=== PATIENT | female | born 1960 | race Caucasian/White ===

== ENCOUNTER 2017-06-03 13:23 | Emergency (ER) | payer OTHER ==
--- NOTE | 2017-06-03 13:49 | C.PDOC ---
History Of Present Illness 57 yr old female presents to the ER with complaints of right hip/groin pain for the past 4 days. Patient states she awoke with pain to the right hip, radiating to the right inner thigh/groin, worse when ranges hip. Denies trauma, pain with weight bearing, back pain, weakness or numbness. VIA TRANS R HIP/GROIN PAIN X 4 DAYS. AWOKE W PAIN R HIP RADIATION R INNER THIGH/GROIN. WORSE WHEN RANGES HIP. NO PAIN W WT BEAR. NO TRAUMA. Time Seen by Provider: 06/03/17 13:46 Chief Complaint (Nursing): Lower Extremity Problem/Injury History Per: Patient History/Exam Limitations: no limitations Onset/Duration Of Symptoms: Days (4) Current Symptoms Are (Timing): Still Present Past Medical History Reviewed: Historical Data, Nursing Documentation, Vital Signs Vital Signs: Last Vital Signs Temp 98.2 F 06/03/17 13:42 Pulse 68 06/03/17 13:42 Resp 16 06/03/17 13:42 BP 122/78 06/03/17 13:42 Pulse Ox 99 06/03/17 14:32 Family History: States: No Known Family Hx Review Of Systems Except As Marked, All Systems Reviewed And Found Negative. Musculoskeletal: Positive for: Other ((+) Right hip/groin pain ). Negative for : Back Pain Neurological: Negative for: Weakness, Numbness Physical Exam - Physical Exam Appears: Non-toxic, No Acute Distress Skin: Warm, Dry Head: Atraumatic, Normacephalic Extremity: Normal ROM (Full ROM of right hip, full external and internal rotation. ), No Swelling Neurological/Psych: Oriented x3, Normal Speech, Normal Motor ED Course And Treatment O2 Sat by Pulse Oximetry: 99 Pulse Ox Interpretation: Normal - Other Rad X-Ray - Right Hip w/ Pelvis X-Ray: Interpreted by Me (NEG) R HIP X-Ray: Interpreted by Me (NEG) Medical Decision Making Medical Decision Making: PLAN: * X-Ray - Right Hip w/ Pelvis * Motrin PO Disposition Counseled Patient/Family Regarding: Studies Performed, Diagnosis, Need For Followup, Rx Given - Disposition Referrals: [facility] [Outside] [facility] [Outside] Disposition: HOME/ ROUTINE Disposition Time: 14:44 Condition: GOOD Prescriptions: Ibuprofen [Motrin] 600 mg PO Q6 #30 tab Instructions: Hip Sprain (ED) Forms: Work Excuse Print Language: AMHARIC - Clinical Impression Clinical Impression: Hip pain - Scribe Statement The provider has reviewed the documentation as recorded by the Tomibe Mercedes Esteban Provider Attestation: All medical record entries made by the Tomibclay were at my direction and personally dictated by me. I have reviewed the chart and agree that the record accurately reflects my personal performance of the history, physical exam, medical decision making, and the department course for this patient. I have also personally directed, reviewed, and agree with the discharge instructions and disposition. Orthopedic Care Application Of:: Knee Immobilizer
[2017-06-03 15:01] VITALS: BP 122/75; PULSE 58; RESP 18; TEMP 98.8; O2SAT 98
--- NOTE | 2017-06-03 15:50 | RAD ---
PROCEDURE: Right Hip Radiographs. HISTORY: PAIN COMPARISON: None. FINDINGS: BONES: No fracture. Probable small bone island adjacent to inferior acetabulum. JOINTS: Narrowing of superior joint space bilaterally with mild marginal osteophyte at superior acetabulum, consistent with osteoarthritis. No articular erosion. SOFT TISSUES: Normal. OTHER FINDINGS: None. IMPRESSION: Mild bilateral superior osteoarthritis.
== END 2017-06-03 15:00 | disposition home or self-care (01) ==
LOC: C.ER 13:23
DX: M25.551 Pain in right hip (principal)

== ENCOUNTER 2018-09-22 09:14 | Emergency (ER) | payer OTHER ==
--- NOTE | 2018-09-22 10:23 | C.PDOC ---
History Of Present Illness 58 y/o female with a PMHx of arthritis in both knees, presents to the ED complaining of right knee pain and difficulty walking for the past week. Patient reports that 2 years ago she had similar pain in the left knee. She describes the pain as shocking, rated 8/10. Patient states the right leg feels weak, and the knee occasionally amber when walking. Otherwise she denies any fever, chills, known trauma, or changes in sensation. Time Seen by Provider: 09/22/18 09:30 Chief Complaint (Nursing): Lower Extremity Problem/Injury History Per: Patient History/Exam Limitations: no limitations Onset/Duration Of Symptoms: Days Current Symptoms Are (Timing): Still Present Severity: Moderate Pain Scale Rating Of: 8 Past Medical History Reviewed: Historical Data, Nursing Documentation, Vital Signs Vital Signs: Last Vital Signs Temp 98 F 09/22/18 09:20 Pulse 70 09/22/18 09:20 Resp 16 09/22/18 09:20 BP 159/83 H 09/22/18 09:20 Pulse Ox 100 09/22/18 09:20 - Medical History PMH: Anemia, Arthritis Other Surgeries: Tubal ligation Family History: States: No Known Family Hx - Social History Hx Alcohol Use: No Hx Substance Use: No - Immunization History Hx Tetanus Toxoid Vaccination: No Hx Influenza Vaccination: No Hx Pneumococcal Vaccination: No Review Of Systems Except As Marked, All Systems Reviewed And Found Negative. Constitutional: Negative for: Fever, Chills Musculoskeletal: Positive for: Leg Pain (right knee) Skin: Negative for: Rash, Lesions, Bruising Neurological: Positive for: Weakness (difficulty ambulating). Negative for: Numbness, Incoordination Physical Exam - Physical Exam Appears: Non-toxic, No Acute Distress Skin: Normal Color, Warm, Dry Extremity: No Tenderness, No Calf Tenderness, Capillary Refill (less than 2 sec), Swelling (Right knee appears swollen and misshapen), Other (Right knee slightly warm to touch, no erythema or skin changes) Pulses: Left Dorsalis Pedis: Normal, Right Dorsalis Pedis: Normal Neurological/Psych: Oriented x3, Normal Motor, Normal Sensation, Other (Able to bear weight on the right, with pain) Gait: Steady ED Course And Treatment O2 Sat by Pulse Oximetry: 100 (RA) Pulse Ox Interpretation: Normal Medical Decision Making Medical Decision Making: Plan: Tylenol and Motrin PO given. On re-evaluation patient reports improvement, and is stable for d/c home. Disposition Counseled Patient/Family Regarding: Diagnosis, Need For Followup, Rx Given - Disposition Referrals: [facility] [Outside] Disposition: HOME/ ROUTINE Disposition Time: 10:47 Condition: STABLE Prescriptions: Ibuprofen [Motrin] 600 mg PO TID #15 tab Instructions: Osteoarthritis (DC) Forms: Gen Discharge Inst Bel[place]ian, [employer] (Bel[place]ian), Work Excuse - POA Present On Arrival: None - Clinical Impression Clinical Impression: Arthritis, Joint pain - Scribe Statement The provider has reviewed the documentation as recorded by the Carlos Enrique Costa Provider Attestation: All medical record entries made by the Carlos Enrique were at my direction and personally dictated by me. I have reviewed the chart and agree that the record accurately reflects my personal performance of the history, physical exam, medical decision making, and the department course for this patient. I have also personally directed, reviewed, and agree with the discharge instructions and disposition.
[2018-09-22 10:51] VITALS: BP 139/72; PULSE 68; RESP 18; TEMP 98.8; O2SAT 98
== END 2018-09-22 10:51 | disposition home or self-care (01) ==
LOC: C.ER 09:14
DX: M17.0 Bilateral primary osteoarthritis of knee (principal); M25.561 Pain in right knee